=== PATIENT | male | born 1950 | race African-American/Black ===

== ENCOUNTER 2020-12-05 13:21 | Inpatient (IN) ==
[2020-12-05] MEDS ORDERED: 0.9 % Sodium Chloride 500 ML IVC ONE (14:09)
[2020-12-05 14:30] LABS: Basophils % 0.5 %; Hematocrit 46.4 % (37.5-50.1); Immature Granulocytes % 0.5 % (0-4); Lymphocytes % 23.5 %; Mean Corpuscular HGB Conc 32.3 g/dL (31.6-35.5); Mean Corpuscular Hemoglobin 27.6 pg (28.0-33.3); Mean Corpuscular Volume 85.3 fL (83.0-100.0); Mean Platelet Volume 9.2 fL (9.4-12.4); Monocytes # 0.5 K/mcL (0.0-1.3); Neutrophils # 2.7 K/mcL (1.6-8.9); Platelet Count 123 K/mcL (140-400); Red Blood Count 5.44 M/mcL (4.19-5.50); Red Cell Distribution Width 14.6 % (11.5-14.5); Segmented Neutrophils % 64.5 %; White Blood Count 4.2 K/mcL (4.3-11.1)
[2020-12-05 14:47] LABS: BUN/Creatinine Ratio 9 (6-26); Blood Urea Nitrogen 14 mg/dL (8-23); Calcium 8.9 mg/dL (8.6-10.3); Carbon Dioxide 24 mEq/L (23-29); Chloride 102 mEq/L (98-107); Glucose 159 mg/dL (70-105); Osmolality,Calculated 288 (280-300); Potassium 4.1 mEq/L (3.5-5.1); Sodium 137 mEq/L (136-145); Troponin I < 0.03 ng/mL (< 0.04); eGFR For African Americans 51 (> 60); eGFR For Non-African Americans 42 (> 60)
[2020-12-05] MEDS ORDERED: Azithromycin 500 MG in D5% in Water 250 ML IVPB ONE (16:34)
[2020-12-05] MEDS ORDERED: cefTRIAXone 1,000 MG in Water for inj. (sterile) 10 ML IVP ONE (17:00)
[2020-12-05] MEDS ORDERED: Naloxone 0.4 MG/ML INJ IVP PRN (17:02)
[2020-12-05] MEDS ORDERED: Ondansetron 4 MG/2 ML VIAL IVP PRN (17:07)
[2020-12-05] MEDS ORDERED: *HR* HYDROcodone/Acet 5/325 mg TABLET PO PRN (17:07)
[2020-12-05] MEDS ORDERED: Ipratropium/Albuterol Neb 3 ML IH PRN (17:08)
[2020-12-05] MEDS ORDERED: Ringers Solution, Lactated 500 ML IVC SCH (17:15)
[2020-12-05] MEDS ORDERED: Dextrose Gel 15 GM/37.5 ML TUBE PO PRN ×2 (17:33)
[2020-12-05] MEDS ORDERED: *HR* Dextrose 50 % in Water (Vial) 50 ML VIAL IVP PRN (17:33)
[2020-12-05] MEDS ORDERED: D5% in Water 1,000 ML IVC PRN (17:33)
[2020-12-05] MEDS: *HR* Heparin 5,000 UNIT/ML VIAL SQ SCH (19:20)
[2020-12-05 19:29] LABS: Adenovirus Not Detected (Not Detect); Bordetella Pertussis Not Detected (Not Detect); Chlamydophila pneumoniae Not Detected (Not Detect); Coronavirus 229E Not Detected (Not Detect); Coronavirus HKU1 Not Detected (Not Detect); Coronavirus NL63 Not Detected (Not Detect); Coronavirus OC43 Not Detected (Not Detect); Human Metapneumovirus Not Detected (Not Detect); Human Rhinovirus/Enterovirus Not Detected (Not Detect); Influenza A Subtype 2009 H1 Not Detected (Not Detect); Influenza B Not Detected (Not Detect); Mycoplasma pneumoniae Not Detected (Not Detect); Parainfluenza Virus 1 Not Detected (Not Detect); Parainfluenza Virus 2 Not Detected (Not Detect); Parainfluenza Virus 3 Not Detected (Not Detect); Parainfluenza Virus 4 Not Detected (Not Detect); Respiratory Syncytial Virus Not Detected (Not Detect); SARS-CoV-2 Not Detected (Not Detect)
[2020-12-05] MEDS: Acetaminophen 325 MG TABLET PO PRN (20:33)
[2020-12-06] MEDS: *HR* Heparin 5,000 UNIT/ML VIAL SQ SCH ×2 (05:33→17:48)
[2020-12-06 06:12] LABS: Basophils % 0.2 %; Hemoglobin 14.1 g/dL (12.9-16.9); Immature Granulocytes % 0.6 % (0-4); Lymphocytes # 0.9 K/mcL (0.6-4.6); Lymphocytes % 18.7 %; Mean Corpuscular HGB Conc 32.8 g/dL (31.6-35.5); Mean Corpuscular Hemoglobin 27.3 pg (28.0-33.3); Mean Corpuscular Volume 83.2 fL (83.0-100.0); Mean Platelet Volume 9.4 fL (9.4-12.4); Monocytes # 0.4 K/mcL (0.0-1.3); Monocytes % 7.4 %; Neutrophils # 3.6 K/mcL (1.6-8.9); Platelet Count 114 K/mcL (140-400); Red Blood Count 5.17 M/mcL (4.19-5.50); Red Cell Distribution Width 14.6 % (11.5-14.5); Segmented Neutrophils % 73.1 %
[2020-12-06 06:31] LABS: BUN/Creatinine Ratio 9 (6-26); Blood Urea Nitrogen 12 mg/dL (8-23); Calcium 8.6 mg/dL (8.6-10.3); Carbon Dioxide 27 mEq/L (23-29); Chloride 104 mEq/L (98-107); Glucose 153 mg/dL (70-105); Lactate Dehydrogenase 241 Units/L (140-271); Osmolality,Calculated 289 (280-300); Phosphorous 2.8 mg/dL (2.7-4.5); Potassium 3.9 mEq/L (3.5-5.1); Sodium 138 mEq/L (136-145); eGFR For African Americans > 60 (> 60); eGFR For Non-African Americans 53 (> 60)
[2020-12-06 06:49] LABS: Ferritin 265 ng/mL (20-250)
[2020-12-06] MEDS: amLODIPine 5 MG TABLET PO SCH (09:06)
[2020-12-06] MEDS: lisinopriL 10 MG TABLET PO SCH (09:06)
[2020-12-06] MEDS: Insulin LISPRO 300 UNITS/3 ML VIAL SUBQ SCH ×3 (09:06→17:58)
[2020-12-06] MEDS: Acetaminophen 325 MG TABLET PO PRN (15:18)
[2020-12-06] MEDS ORDERED: Azithromycin 500 MG in 0.9 % Sodium Chloride 250 ML IVPB SCH (17:00)
[2020-12-06] MEDS: MethylPREDNISolone 40 MG/ML VIAL IVP SCH (17:57)
[2020-12-06] MEDS ORDERED: cefTRIAXone 1,000 MG in Water for inj. (sterile) 10 ML IVP SCH (18:00)
[2020-12-06] MEDS ORDERED: Ringers Solution, Lactated 1,000 ML IVC SCH (18:15)
[2020-12-06] MEDS ORDERED: Insulin DETEMIR 100 UNIT/ML X5UNITS SUBQ SCH (21:00)
[2020-12-07 00:12] LABS: Adenovirus F 40/41 PCR Not detected (Not detect); Astrovirus PCR Not detected (Not detect); C.difficile Toxin A/B Gene PCR Not detected (Not detect); Campylobacter by PCR Not detected (Not detect); Cryptosporidium by PCR Not detected (Not detect); Cyclospora cayetanensis PCR Not detected (Not detect); E. coli O157 by PCR Not detected (Not detect); Entamoeba histolytica PCR Not detected (Not detect); Enteroaggregative E.coli(EAEC) Not detected (Not detect); Enteropathogenic E.coli(EPEC) Not detected (Not detect); Enterotoxigenic E.coli (ETEC) Not detected (Not detect); Giardia lamblia PCR Not detected (Not detect); Norovirus GI/GII PCR Not detected (Not detect); Plesiomonas shigelloides PCR Not detected (Not detect); Rotavirus A PCR Not detected (Not detect); Salmonella PCR Not detected (Not detect); Sapovirus PCR Not detected (Not detect); Shig/EnteroinvasiveE coli EIEC Not detected (Not detect); Shigalike tox-prod E coli STEC Not detected (Not detect); Vibrio PCR Not detected (Not detect); Vibrio cholerae PCR Not detected (Not detect); Yersinia enterocolitica PCR Not detected (Not detect)
[2020-12-07] MEDS: MethylPREDNISolone 40 MG/ML VIAL IVP SCH ×2 (05:22→17:24)
[2020-12-07] MEDS: *HR* Heparin 5,000 UNIT/ML VIAL SQ SCH ×2 (05:23→17:32)
[2020-12-07 08:14] LABS: BUN/Creatinine Ratio 12 (6-26); Blood Urea Nitrogen 15 mg/dL (8-23); Calcium 8.7 mg/dL (8.6-10.3); Carbon Dioxide 24 mEq/L (23-29); Chloride 104 mEq/L (98-107); Glucose 218 mg/dL (70-105); Magnesium 2.1 mg/dL (1.6-2.6); Osmolality,Calculated 289 (280-300); Phosphorous 2.9 mg/dL (2.7-4.5); Potassium 4.3 mEq/L (3.5-5.1); Sodium 136 mEq/L (136-145); eGFR For African Americans > 60 (> 60); eGFR For Non-African Americans 55 (> 60)
[2020-12-07] MEDS: amLODIPine 5 MG TABLET PO SCH (09:54)
[2020-12-07] MEDS: lisinopriL 10 MG TABLET PO SCH (09:55)
[2020-12-07] MEDS: Insulin LISPRO 300 UNITS/3 ML VIAL SUBQ SCH ×3 (09:55→17:32)
[2020-12-07] MEDS: Acetaminophen 325 MG TABLET PO PRN (09:56)
[2020-12-07] MEDS: GuaiFENesin/Dextromethorphan TABLET PO PRN (12:37)
[2020-12-07] MEDS: Insulin DETEMIR 100 UNIT/ML X5UNITS SUBQ SCH (21:12)
[2020-12-08] MEDS: MethylPREDNISolone 40 MG/ML VIAL IVP SCH (05:01)
[2020-12-08] MEDS: *HR* Heparin 5,000 UNIT/ML VIAL SQ SCH (05:01)
[2020-12-08 07:59] LABS: BUN/Creatinine Ratio 19 (6-26); Blood Urea Nitrogen 23 mg/dL (8-23); Calcium 8.7 mg/dL (8.6-10.3); Carbon Dioxide 23 mEq/L (23-29); Chloride 106 mEq/L (98-107); Glucose 266 mg/dL (70-105); Lactate Dehydrogenase 263 Units/L (140-271); Magnesium 2.3 mg/dL (1.6-2.6); Osmolality,Calculated 299 (280-300); Phosphorous 3.2 mg/dL (2.7-4.5); Potassium 4.5 mEq/L (3.5-5.1); Sodium 138 mEq/L (136-145); eGFR For African Americans > 60 (> 60); eGFR For Non-African Americans 58 (> 60)
[2020-12-08 08:17] LABS: Ferritin 380 ng/mL (20-250)
[2020-12-08] MEDS: GuaiFENesin/Dextromethorphan TABLET PO PRN (08:34)
[2020-12-08] MEDS: Insulin LISPRO 300 UNITS/3 ML VIAL SUBQ SCH ×2 (08:35→11:43)
[2020-12-08] MEDS: Insulin DETEMIR 100 UNIT/ML X5UNITS SUBQ SCH (08:35)
[2020-12-08] MEDS: amLODIPine 5 MG TABLET PO SCH (08:36)
[2020-12-08] MEDS: lisinopriL 10 MG TABLET PO SCH (08:37)
[2020-12-08] MEDS ORDERED: levoFLOXacin 750 MG TABLET PO SCH (09:00)
[2020-12-08 11:19] VITALS: BP 155/87
== END 2020-12-08 14:06 | disposition home or self-care (01) | DRG 194 ==
LOC: 2ANU 13:21 → EMEROOARM 13:21 → SUATTDRO 17:09 → 2ANU 18:49
PROVIDERS: ADMIT Internal Medicine; ATTEND Internal Medicine